=== PATIENT | male | born 1950 | race Caucasian/White ===

== ENCOUNTER → 2024-04-29 12:29 | Outpatient (REF) | payer OTHER, SELFPAY | LOC: RAD 12:29 | PROVIDERS: ATTENDING PHYSICIAN Surgery Vascular Surgery; FAMILY PHYSICIAN Family Medicine | DX: Z01.818 Encounter for other preprocedural examination (principal); N18.6 End stage renal disease | CPT/HCPCS: 93985 ==

== ENCOUNTER 2024-05-13 06:23 | Day surgery (SDC) | payer OTHER, SELFPAY ==
[2024-05-13] VITALS (10 sets, daily range): BP systolic 146–191; BP diastolic 82–93; BMI 21.0
--- NOTE | 2024-05-13 06:56 | HP.FOC2 ---
Focused History & Physical
Chief Complaint
HPI:
Chief Complaint: Here for planned AV fistula creation
HPI / Indication for Planned Procedure: 73-year-old male here for a left possible right AV fistula creation. Patient started on dialysis recently. Patient is right-handed. Patient was referred by his fan balancer Dr. Nicole. Only recent change
is his start on dialysis (Monday, , Monday). Agreeable to proceed.
Relevant Past Medical History: Hypertension, Stroke and Other (Brain abscess)
Relevant Social History: Negative
Relevant Family History: Negative
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
Review of Systems
Review of Pertinent Systems: All Systems Negative
Medication
See Medication form for detailed medications: No
Medication List (including Herbals & OTC):
Probiotic 1 tab PO DAILY 05/08/24
acetaminophen 300 mg-codeine 30 mg tablet 1 tab PO PRN PRN Pain 05/08/24
allopurinol 100 mg tablet 100 mg PO DAILY 05/08/24
aspirin 81 mg tablet,delayed release 81 mg PO DAILY 05/08/24
calcitriol 0.25 mcg capsule 0.25 mcg PO DAILY 05/08/24
cholecalciferol (vitamin D3) 25 mcg (1,000 unit) capsule (Vitamin D3) 50 mcg PO DAILY 05/08/24
escitalopram oxalate 20 mg tablet (Lexapro) 20 mg PO DAILY 05/08/24
levetiracetam 250 mg tablet 250 mg PO Q12H 05/08/24
losartan 100 mg tablet 100 mg PO DAILY 05/08/24
omeprazole 40 mg capsule,delayed release 40 mg PO DAILY 05/08/24
vitamin B complex-vitamin C-folic acid 800 mcg chewable tablet (Dialyvite 800) 1 tab PO DAILY 05/08/24
Medications Reviewed: Yes
Allergies and Reactions
Patient has Allergies: Yes
Noted Allergies and Reactions:
Allergy/AdvReac Type Severity Reaction Status Date / Time
ciprofloxacin [From Cipro] Allergy Rash Verified 05/08/24 13:58
gabapentin Allergy Vomiting Verified 05/08/24 13:58
Iodinated Contrast Media Allergy Hives Verified 05/08/24 13:58
Pertinent Physical Exam
All Other Systems: Negative
Head/Neck: Normal
Lungs: Normal
Heart: Normal
Abdomen: Normal
Extremities: Normal
Neurological: Normal
Diagnosis / Assessment
Patient here for planned AV fistula creation
Dx end-stage renal disease
Plan / Procedure
Planned AV fistula creation today, left possible right
Anesthesia/Sedation to be done by Anesthesia Provider: Yes
--- NOTE | 2024-05-13 07:20 | W.SUR.PREOP ---
Pre-Operative Surgical Note
-
I have examined this patient prior to the performance of the scheduled procedure.
The patient's condition is unchanged from the time of the current History and
Physical and the patient is able to undergo the scheduled procedure.
[2024-05-13 07:23] LABS: INR 1.09
[2024-05-13 07:24] LABS: APTT 26.4 Sec (23.4-35.0)
[2024-05-13 07:31] LABS: Hematocrit 30.6 % (39.0-52.0); Hemoglobin 9.7 g/dL (13.0-18.0); Mean Corp Hgb Conc. 31.7 g/dL (33.0-37.0); Mean Corpuscular Hgb 30.5 pg (27.0-31.0); Mean Corpuscular Volume 96.2 fL (80.0-94.0); Platelet Count 250 10^3/uL (130-400); Red Blood Cell Count 3.18 10^6/uL (4.70-6.10); Red Cell Dist. Width 19.1 % (11.5-14.5); White Blood Cell Count 5.2 10^3/uL (4.8-10.8)
[2024-05-13] MEDS: NSS 500 IV (07:53)
[2024-05-13] MEDS: BACTROBAN NASAL 1 GRAM NASAL (07:53)
[2024-05-13] MEDS: PERIDEX 0.12% ORAL RINSE 15 ML PO (07:54)
[2024-05-13 07:57] LABS: APTT 30.6 Sec (23.4-35.0); INR 1.11; PT 14.1 Sec (11.4-14.6)
[2024-05-13 08:01] LABS: Blood Urea Nitrogen 33 mg/dl (9-20); Calcium 9.9 mg/dl (8.4-10.2); Carbon Dioxide 30 mmol/L (22-30); Chloride 101 mmol/L (98-107); Estimated Creatinine Clearance 14 ml/min; Glucose 78 mg/dl (70-99); Potassium 5.3 mmol/L (3.5-5.1); Sodium 136 mmol/L (135-145); eGFR 13.98
--- NOTE | 2024-05-13 09:30 | W.SUR.POST ---
Surgical Immediate Post Op
Note
Pre Op Diagnosis: End-stage renal disease
Post Op Diagnosis: Same
Procedure Performed: Left upper extremity brachiocephalic fistula creation with short segment transposition of the vein
Primary Surgeon: Alvino
Assist: Yvrose MALONEY
Anesthesia: LMA
Estimated Blood Loss: 30 cc
Fluids: See anesthesia flowsheet
Drains/Shunts: None
Specimens/Cultures: None
Doppler/Duplex/Angio (Y/N): Y
Complications: None
Operative Findings: Palpable radial pulse, palpable thrill
--- NOTE | 2024-05-13 10:23 | OR.RPT ---
Operative Report
Operative Report
PROCEDURE DATE: 05/13/2024
Preoperative diagnosis: End-stage renal disease on hemodialysis
Postoperative diagnosis: Same
Procedure: Left upper extremity brachiocephalic arteriovenous fistula creation with short segment transposition of the cephalic vein.
Surgeon: Alvino
Gas Prover: Yvrose, required for all aspects of procedure including assistance with traction/countertraction, following of suture line, assistance with closure.
Complications: None
Anesthesia: General
Indications for procedure:
Advanced chronic kidney disease approaching hemodialysis when I seen him in the office. Subsequently in the time since he was scheduled for surgery, he initiated hemodialysis. Risk/benefits/alternatives of AV access fully discussed. Patient
understood all wish to proceed.
Description of procedure:
Patient was identified brought to the operating room placed on the table in supine position. After the administration of anesthesia, I used an ultrasound to map his left upper extremity veins. In the antecubital fossa, there was no reasonable
sized veins. I was able to identify the cephalic vein slightly lateral to the antecubital fossa and running then again more medially in the upper arm. This looked to be a reasonable vein. However this was farther from the artery. Therefore I
felt that it was reasonable to mobilize this vein a little bit and then short segment transposed over to the artery at the antecubital fossa. After the adequate administration of anesthesia and perioperative antibiotics he was prepped and draped in
the standard surgical fashion. A standard preoperative timeout was undertaken and everybody was in agreement the plan. A longitudinal incision was made overlying the marked made of the cephalic vein at the lateral aspect of the antecubital fossa
region. This was carried through the skin subcutaneous tissue and the cephalic vein was identified and carefully dissected away from surrounding structures. Any branches were ligated between silk ties and divided. I mobilized a suitable segment
of cephalic vein such that I be able to transpose that segment over to the artery. Next, A small transverse incision was made in the proximal volar aspect of the forearm just distal to the antecubital fossa, overlying the pulsation of the artery.
This was carried through skin subcutaneous tissue. I carried my dissection through the fascia, and was able to identify the brachial artery and carefully dissected away from surrounding structures and great care to avoid any injury to the
structures. Vesseloops were passed around it proximally and distally. Next, I ligated the cephalic vein distally in the exposed incision site. This was done with a silk tie and a clip. I then transected the vein and distended under heparinized
saline. It distended very well. I marked the anterior surface under distention and then used an aortic clamp to create a subcutaneous tunnel between the arterial exposure site and this slightly more lateral cephalic vein and then was able to
tunnel. Care was taken avoid any kinking or twisting. Next I gave the patient 3000 units of intravenous heparin. Next I tightened my double looped Vesseloops on the artery proximally and distally. I then made an arteriotomy with 11 blade
extended using a Wang scissor. I spatulated the cephalic vein and sewed an end to side anastomosis using a running 6-0 Prolene suture. Prior to completing and tying down my suture line I backbled and forebled the [place] artery. Next I released
my bulldog clamp on the vein and then released my Vesseloops on the artery. There was an excellent thrill in the fistula. There was a palpable pulse in the radial artery at the wrist. At this point I was very satisfied. I irrigated. I achieved
and confirmed full hemostasis. We then closed in layers using 3-0 Vicryl deep dermal layer followed by 4-0 Monocryl subcuticular stitch. Dermabond was applied. The patient tolerated the procedure well.
== END 2024-05-13 11:57 | disposition home or self-care (01) ==
LOC: CATH 06:23
PROVIDERS: Nurse Practitioner Acute Care; ATTENDING PHYSICIAN Surgery Vascular Surgery; FAMILY PHYSICIAN Family Medicine
DX: N18.6 End stage renal disease (principal); I12.0 Hypertensive chronic kidney disease with stage 5 chronic kidney disease or end stage renal disease; Z99.2 Dependence on renal dialysis; Z79.82 Long term (current) use of aspirin; Z79.899 Other long term (current) drug therapy
CPT/HCPCS: 36818; 80048; 85027; 85610; 85730; 93005